=== PATIENT | male | born 1995 | race Caucasian/White ===

== ENCOUNTER 2018-03-30 00:26 | Emergency (ER) | payer OTHER ==
[~2018-03-30] VITALS: Ht 182.9 cm; Wt 86.2 kg
[2018-03-30] MEDS ORDERED: ASPIRIN 81 MG TAB.CHEW PO ONE (00:30)
[2018-03-30 00:35] VITALS: BP_SYST 137
[2018-03-30 01:31] LABS: BASOPHILS # (AUTO) 0.1 K/uL (0.0-0.2); BASOPHILS % (AUTO) 1.1 % (0.0-2.0); EOSINOPHILS # (AUTO) 0.5 K/uL (0.0-0.4); EOSINOPHILS % (AUTO) 5.4 % (0.0-4.0); HEMATOCRIT 44.5 % (36-54); HEMOGLOBIN 15.8 g/dL (14.0-18.0); LYMPHOCYTES # (AUTO) 2.9 K/uL (1.0-5.5); LYMPHOCYTES % (AUTO) 29.3 % (20.5-51.5); MEAN CORPUSCULAR HEMOGLOBIN 32 pg (27-31); MEAN CORPUSCULAR HGB CONC 36 % (32-36); MEAN CORPUSCULAR VOLUME 90 fL (79.0-98.0); MONOCYTES # (AUTO) 0.7 K/uL (0.0-1.0); MONOCYTES % (AUTO) 6.7 % (1.7-9.3); NEUTROPHILS # (AUTO) 5.8 K/uL (1.8-7.7); NEUTROPHILS % (AUTO) 57.5 % (40.0-70.0); PLATELET COUNT (AUTO) 275 K/uL (130-430); RED BLOOD CELL COUNT(AUTO) 4.94 MIL/uL (4.2-6.2); RED CELL DISTRIBUTION WIDTH 11.3 % (9.0-15.0)
[2018-03-30 01:58] LABS: ANION GAP 8 (5-15); CALCIUM 9.3 mg/dL (8.4-11.0); CHLORIDE 102 mmol/L (98-107); CREATININE 1.01 mg/dL (0.55-1.30); GLUCOSE 89 mg/dL (70-99); POTASSIUM 3.9 mmol/L (3.5-5.1); SODIUM SERUM 139 mmol/L (136-145); UREA NITROGEN, BLOOD 22 mg/dL (8-21)
[2018-03-30 02:02] LABS: GFR AFRICAN AMERICAN 118 mL/min (>90)
[2018-03-30 02:12] LABS: ALANINE AMINOTRANSFERASE 50 U/L (12-78); ALBUMIN 4.2 g/dL (3.4-4.8); ASPARTATE AMINOTRANSFERASE 30 U/L (10-37); THYROID STIMULATING HORMONE 6.67 uIu/mL (0.36-3.74); TOTAL BILIRUBIN 0.4 mg/dL (0.0-1.0)
[2018-03-30 02:24] LABS: CHOLESTEROL 132 mg/dL (<200); HDL CHOLESTEROL 40 mg/dL (>45); LDL CHOLESTEROL 83 mg/dL (<100); TRIGLYCERIDES 24 mg/dL (30-150)
[2018-03-30] MEDS ORDERED: LOSARTAN POTASSIUM 25 MG TABLET PO ONE (02:45)
[2018-03-30] MEDS ORDERED: LOSARTAN POTASSIUM 25 MG TABLET ONE (03:13)
[2018-03-30 03:40] VITALS: BP_SYST 139
[2018-03-31 05:06] LABS: CORTISOL (SERUM) 11.7 ug/dL (.)
== END 2018-03-30 03:40 | disposition home or self-care (01) ==
LOC: SED 00:26
DX: I10 Essential (primary) hypertension (principal)
CPT/HCPCS: 36415; 71045; 80053; 80061; 82533; 84443-TC; 84479; 84484; 85025; 85379; 93005; 99285